=== PATIENT | female | born 1995 | race American Indian/Alaskan Native ===

== ENCOUNTER 2017-06-01 14:07 | Inpatient (IN) | payer MEDICAID ==
--- NOTE | 2017-06-01 15:18 | History and Physical Report ---
History of Present Illness Date of examination: 06/01/17 Date of admission: 06/01/17 14:07 Chief complaint: IUFD at 16 weeks History of present illness: 21-year-old at ~ 16+4 weeks (via LMP c/w 1st tri sono) with IUFD, she is [facility] patient. Care unremarkable so far, she is status post SAB October of this year at ~ 6 weeks. She was being seen by a APA because of her prior history of loss. It appears she was seen today with ultrasound obtained showing IUFD at 15+3 weeks. growth is less than expected. With both abdominal circumference and estimated weight lagging below the 10th percentile. EFW was 131 g, 6th percentile, findings suggest IUGR. She currently has no contractions, no vaginal bleeding or loss of fluid On exam, she is obese and cervix is long thick and closed Past History Past Medical History: no pertinent history Past Surgical History: no surgical history [employer] History: chlamydia. denies: gonorrhea, hepatitis B, hepatitis C, herpes, HIV, syphilis, trichomonas Social history: single, smoking, full code. denies: alcohol abuse, prescription drug abuse, IV drug use - Obstetrical History Expected Date of Delivery: 11/12/17 Actual Gestation: 16 Week(s) 4 Day(s) : 2 Para: 0 Medications and Allergies Allergies Allergy/AdvReac Type Severity Reaction Status Date / Time No Known Allergies Allergy Verified 06/01/17 15:18 Home Medications Medication Instructions Recorded Confirmed Last Taken Type Misoprostol [Cytotec] 400 mcg PO Q4H #8 tablet 06/01/17 Unknown Rx Review of Systems Constitutional: no fever, no chills, no sweats, no weakness, no chronic headaches Cardiovascular: no chest pain, no orthopnea, no syncope, no lightheadedness, no shortness of breath, no dyspnea on exertion, no high blood pressure, no decreased exercise tolerance Respiratory: no cough, no cough with sputum, no shortness of breath, no dyspnea on exertion Gastrointestinal: no abdominal pain, no nausea, no vomiting Genitourinary: no vaginal bleeding, no vaginal discharge, no leakage of fluid, no contractions - Physical Exam Cardiovascular: Regular rate, Normal S1, Normal S2 Lungs: Positive: Clear to auscultation, Normal air movement Abdomen: Positive: normal appearance, soft. Negative: distention, tenderness, guarding, rigidity Genitourinary (Female): Positive: normal external genitalia Vulva: both: normal Vagina: Negative: discharge Uterus: Negative: tender Adnexa: both: normal Extremities: Positive: normal - Obstetrical Cervical Dilatation: 0 Cervical Effacement Percentage: 0 station: -4 Results All other labs normal. Assessment and Plan A: 21-year-old at 16+4 weeks with IUFD -sono shows fetus lagging by 1 wk at ~ 15+4 wks P: -Patient emotional and grieving at her loss, she desires discharge home with oral Cytotec -Discussed above with the patient, as she is uncomfortable in the hospital, offered discharge home with courses of Cytotec. Advised she will need to take this on a scheduled basis. Discussed in detail the risk of heavy bleeding at home. Advised to proceed to the hospital as soon as she encounters bleeding due to the likely heavy nature when it occurs. -I discussed the likely causes of her loss, and reviewed MFM note with her. She is aware that aneuploidy is the most likely cause. I advised that she wait , and only proceed with testing if she has 3 recurrent losses. Offered to start testing if she so desires. Patient appears to have accepted waiting, she also understands that she should stop smoking -Will discharge home on Cytotec 400 g every 4 hours 4 doses -She should present to the clinic next week if labour not initiated - Patient Problems (1) 16 weeks gestation of Current Visit: Yes Status: Acute (2) IUFD (intrauterine ) Current Visit: Yes Status: Acute
--- NOTE | 2017-06-01 15:53 | Discharge Summary ---
Providers - Providers Date of Admission: 06/01/17 14:07 Date of discharge: 06/01/17 Attending physician: HOWARD PARIKH Primary care physician: HOWARD PARIKH Hospitalization Reason for admission: IUFD (at 16 weeks) Discharge diagnosis: intrapartum demise (at 16 weeks) Hospital course: 21-year-old at ~ 16+4 weeks (via LMP c/w 1st tri sono) with IUFD, she is [facility] patient. Care unremarkable so far, she is status post SAB October of this year at ~ 6 weeks. She was being seen by a APA because of her prior history of loss. It appears she was seen today with ultrasound obtained showing IUFD at 15+3 weeks. growth is less than expected. With both abdominal circumference and estimated weight lagging below the 10th percentile. EFW was 131 g, 6th percentile, findings suggest IUGR. She currently has no contractions, no vaginal bleeding or loss of fluid On exam, she is obese and cervix is long thick and closed A: 21-year-old at 16+4 weeks with IUFD -sono shows fetus lagging by 1 wk at ~ 15+4 wks P: -Patient emotional and grieving at her loss, she desires discharge home with oral Cytotec -Discussed above with the patient, as she is uncomfortable in the hospital and wants to go home, offered discharge home with courses of Cytotec. Advised she will need to take this on a scheduled basis. Discussed in detail of the risk of heavy bleeding at home. Advised to proceed to the hospital as soon as she encounters bleeding due to the likely heavy nature when it occurs. -I discussed the likely causes of her loss, and reviewed [facility] note with her. She is aware that aneuploidy is the most likely cause. I advised that she wait , and only proceed with testing if she has 3 recurrent losses. Offered to start testing if she so desires. Patient appears to have accepted waiting, she also understands that she should stop smoking -Will discharge home on Cytotec 400 g every 4 hours 4 doses -She should present to the clinic next week if labour not initiated Condition at discharge: Good Disposition: [id number] TO HOME OR SELFCARE - Discharge Diagnoses (1) 16 weeks gestation of Status: Acute (2) IUFD (intrauterine ) Status: Acute Plan - Discharge Medications Prescriptions: Misoprostol [Cytotec] 400 mcg PO Q4H #8 tablet - Provider Discharge Summary Activity: no sex for 6 weeks, no heavy lifting 4 weeks, no strenuous exercise Diet: routine Additional instructions: [] Smoking cessation referral if applicable(refer to patient education folder for contact #) [] Refer to [facility]'s [facility] Booklet Call your doctor immediately for: * Fever > 100.5 * Heavy vaginal bleeding ( >1 pad per hour) * Severe persistent headache * Shortness of breath * Reddened, hot, painful area to leg or breast * Drainage or odor from incision. * Keep incision clean and dry at all times and follow doctor's instructions regarding bathing/showering - Follow up plan Follow up: HOWARD PARIKH MD [Primary Care Provider] - 7 Days Forms: Work/School Release Form
[2017-06-01 16:01] VITALS: BP 116/57
[2017-06-01] MEDS ORDERED: LACTATED RINGERS 1,000 ML ONE (16:33)
== END 2017-06-01 16:51 | disposition home or self-care (01) | DRG 779 ==
LOC: LD 14:07
PROVIDERS: ADMIT Obstetrics & Gynecology Gynecology; ATTEND Obstetrics & Gynecology Gynecology
DX: O02.1 Missed abortion (principal); E66.9 Obesity, unspecified; Z68.41 Body mass index [BMI] 40.0-44.9, adult
CPT/HCPCS: J7120